=== PATIENT | female | born 1985 | race Hispanic/Latino ===

== ENCOUNTER 2023-06-05 11:44 | Emergency (ER) | payer MEDICAID, OTHER ==
[~2023-06-05] VITALS: Ht 160 cm; Wt 61.2 kg
[~2023-06-05 11:44] MED LIST: IBUP-2070 PO; PREN1TAB89 PO
[2023-06-05 11:47] VITALS: BP 108/69; PULSE 77; RESP 18
[2023-06-05 12:28] LABS: BASOPHILS # (AUTO) 0.04 K/uL (0.00-0.20); BASOPHILS % (AUTO) 0.4 % (0.0-5.0); HEMATOCRIT 37.2 % (36-48); IMMATURE GRANULOCYTE ABSOLUTE 0.03 K/uL (0-1); LYMPHOCYTES # (AUTO) 2.9 K/uL (1.0-4.8); LYMPHOCYTES % (AUTO) 28.3 % (21.0-51.0); MEAN CORPUSCULAR HGB CONC 34.9 g/dL (32.0-36.0); MEAN CORPUSCULAR VOLUME 91.6 fL (79-99); MONOCYTES # (AUTO) 0.6 K/uL (0.1-1.0); MONOCYTES % (AUTO) 6.1 % (3.0-13.0); NEUTROPHILS # (AUTO) 6.5 K/uL (1.8-7.7); NEUTROPHILS % (AUTO) 63.9 % (40.0-77.0); PLATELET COUNT (AUTO) 249 K/uL (130-400); RED BLOOD CELL COUNT(AUTO) 4.06 MIL/uL (4.00-5.50); WHITE BLOOD COUNT (AUTO) 10.2 K/uL (4.8-10.8)
[2023-06-05 12:38] LABS: APPEARANCE,URINE CLEAR (CLEAR); BILIRUBIN,URINE NEGATIVE (NEGATIVE); COLOR,URINE YELLOW (YELLOW); GLUCOSE, URINE (UA) NEGATIVE (NEGATIVE); KETONES,URINE NEGATIVE (NEGATIVE); LEUKOCYTE ESTERASE ,URINE 25 Leu/uL (NEGATIVE); NITRATE,URINE NEGATIVE (NEGATIVE); OCCULT BLOOD,URINE MODERATE (NEGATIVE); PROTEIN,URINE 30 mg/dL (NEGATIVE)
[2023-06-05 12:40] LABS: CREATININE 0.9 mg/dL (0.5-1.5); POTASSIUM 4.1 mmol/L (3.5-5.1)
[2023-06-05 12:45] LABS: BILIRUBIN,TOTAL 0.6 mg/dL (0.2-1.0); TOTAL PROTEIN, SERUM 7.7 g/dL (6.0-8.3)
[2023-06-05 12:46] LABS: AMPHET/METH SCREEN,URINE NEGATIVE (NEGATIVE); BARBITURATE SCREEN, URINE NEGATIVE (NEGATIVE); BENZODIAZEPINES SCREEN,URINE POSITIVE (NEGATIVE); CANNABINOID SCREEN,URINE POSITIVE (NEGATIVE); COCAINE SCREEN,URINE NEGATIVE (NEGATIVE); OPIATE SCREEN,URINE NEGATIVE (NEGATIVE); PHENCYCLIDINE SCREEN,URINE NEGATIVE (NEGATIVE)
[2023-06-05 12:58] LABS: ADD UA MICROSCOPIC YES
[2023-06-05 13:13] LABS: BACTERIA,URINE RARE /HPF (None Seen); MUCUS,URINE MOD LPF (None Seen); RBC,URINE 26-50 /HPF (0-1); SQUAMOUS EPITHELIAL CELL,UR MOD /HPF (0-2)
[2023-06-05] MEDS ORDERED: NITROFURANTOIN MONOHYD/M-CRYST 100 MG CAPSULE PO ONE (14:00)
[2023-06-05] MEDS ORDERED: METOCLOPRAMIDE 10 MG TABLET PO ONE (14:00)
[2023-06-05] MEDS: 0.9%NACL 1000ML 1,000 ML IV ONE (14:51)
[2023-06-05] MEDS: ONDANSETRON ODT 4MG TAB SL ONE (14:51)
[2023-06-05] MEDS: CEFTRIAXONE 1G VIAL IVPB ONE (14:51)
[2023-06-05 15:18] LABS: SARS-CoV-2, RNA, NAAT NEGATIVE SARS CoV-2 (NEGATIVE)
[2023-06-05] MEDS: ONDANSETRON 4MG INJ IVP ONE (15:39)
[2023-06-05] MEDS: MORPHINE 2 MG SYG IVP ONE (15:39)
[2023-06-05 15:52] LABS: INFLUENZA TYPE A Negative For Type A (NEGATIVE); INFLUENZA TYPE B Negative For Type B (NEGATIVE)
[2023-06-05] MEDS ORDERED: NITR100C PO (16:59)
[2023-06-05] MEDS ORDERED: ONDA4TAB10 PO (16:59)
== END 2023-06-05 17:13 | disposition home or self-care (01) ==
LOC: EDH 11:44
DX: N39.0 Urinary tract infection, site not specified (principal); F12.90 Cannabis use, unspecified, uncomplicated; I10 Essential (primary) hypertension; F41.9 Anxiety disorder, unspecified; Z20.822 Contact with and (suspected) exposure to COVID-19; Z79.899 Other long term (current) drug therapy; Z98.890 Other specified postprocedural states
CPT/HCPCS: 99285; 96374; 76705; 96375; 87635; 80053; 80305; 87088; 85025; 83690; 87077; 87186; 87804 ×2; 81025; 36415; 81001; J2270; J7030; J0696; J2405

== ENCOUNTER 2023-06-27 21:54 | Emergency (ER) | payer MEDICAID, OTHER ==
[~2023-06-27] VITALS: Ht 160 cm; Wt 62.6 kg
[~2023-06-27 21:54] MED LIST changes: +NITR100C PO; +ONDA4TAB10 PO
[2023-06-27 23:29] LABS: BASOPHILS # (AUTO) 0.03 K/uL (0.00-0.20); BASOPHILS % (AUTO) 0.3 % (0.0-5.0); EOSINOPHILS # (AUTO) 0.08 K/uL (0.00-0.70); EOSINOPHILS % (AUTO) 0.9 % (0.0-8.0); IMMATURE GRANULOCYTE ABSOLUTE 0.04 K/uL (0-1); LYMPHOCYTES # (AUTO) 2.5 K/uL (1.0-4.8); LYMPHOCYTES % (AUTO) 28.8 % (21.0-51.0); MEAN CORPUSCULAR HEMOGLOBIN 31.6 pg (27.0-33.0); MEAN CORPUSCULAR HGB CONC 35.1 g/dL (32.0-36.0); MONOCYTES # (AUTO) 0.8 K/uL (0.1-1.0); MONOCYTES % (AUTO) 8.7 % (3.0-13.0); NEUTROPHILS # (AUTO) 5.3 K/uL (1.8-7.7); NEUTROPHILS % (AUTO) 60.8 % (40.0-77.0); PLATELET COUNT (AUTO) 183 K/uL (130-400); RED BLOOD CELL COUNT(AUTO) 3.89 MIL/uL (4.00-5.50); RED CELL DISTRIBUTION WIDTH 12.2 % (11.0-15.5); WHITE BLOOD COUNT (AUTO) 8.7 K/uL (4.8-10.8)
[2023-06-27 23:39] LABS: CREATININE 0.8 mg/dL (0.5-1.0); POTASSIUM 3.7 mmol/L (3.5-5.1)
[2023-06-27 23:44] LABS: ALBUMIN 3.6 g/dL (3.5-5.0); BILIRUBIN,TOTAL 0.3 mg/dL (0.2-1.0)
[2023-06-27 23:52] LABS: RAPID GROUP A STREP negative (NEGATIVE)
[2023-06-27 23:59] LABS: SARS-CoV-2, RNA, NAAT NEGATIVE SARS CoV-2 (NEGATIVE)
[2023-06-28 00:02] LABS: INFLUENZA TYPE A Negative For Type A (NEGATIVE); INFLUENZA TYPE B Negative For Type B (NEGATIVE)
[2023-06-28] MEDS: ONDANSETRON 4MG INJ IVP ONE (00:25)
[2023-06-28] MEDS: LACTATED RINGERS 1000ML 1,000 ML IV ONE (00:25)
[2023-06-28] MEDS: KETOROLAC 30MG VIAL (30MG/ML) IVP ONE (00:31)
[2023-06-28] MEDS: KETOROLAC 30MG VIAL (30MG/ML) ONE (00:31)
[2023-06-28 00:33] LABS: BILIRUBIN,URINE NEGATIVE (NEGATIVE); COLOR,URINE LIGHT-YELLOW (YELLOW); GLUCOSE, URINE (UA) NEGATIVE (NEGATIVE); KETONES,URINE NEGATIVE (NEGATIVE); LEUKOCYTE ESTERASE ,URINE 25 Leu/uL (NEGATIVE); NITRATE,URINE NEGATIVE (NEGATIVE); OCCULT BLOOD,URINE MODERATE (NEGATIVE); PROTEIN,URINE NEGATIVE (NEGATIVE); UROBILINOGEN,URINE 0.2 mg/dL (0.2-1.0)
[2023-06-28 00:34] LABS: ADD UA MICROSCOPIC YES; APPEARANCE,URINE HAZY (CLEAR)
[2023-06-28 00:37] LABS: BACTERIA,URINE RARE /HPF (None Seen); SQUAMOUS EPITHELIAL CELL,UR MOD /HPF (0-2)
[2023-06-28] MEDS: PEG 3350/NA SULF,BICARB,CL/KCL 4000 ML SOLN PO ONE (01:45)
[2023-06-28] MEDS ORDERED: ONDA4TAB10 PO (01:49)
[2023-06-28] MEDS ORDERED: DOCU-116 PO (01:49)
[2023-06-28] MEDS ORDERED: NAPR-1180 PO (01:49)
[2023-06-28 02:39] VITALS: BP 105/68; PULSE 68; RESP 18; O2SAT 100
== END 2023-06-28 02:41 | disposition home or self-care (01) ==
LOC: EDH 21:54
DX: N20.0 Calculus of kidney (principal); K59.00 Constipation, unspecified; D64.9 Anemia, unspecified; Z79.899 Other long term (current) drug therapy; Z20.822 Contact with and (suspected) exposure to COVID-19; Z98.890 Other specified postprocedural states
CPT/HCPCS: 99285; 74176; 87635; 80053; 84703; 83690; 85025; 87880; 87804 ×2; 81001; 36415; 96374; 96361; 96375; J7120; J2405; J1885

== ENCOUNTER 2024-03-05 12:48 | Emergency (ER) | payer SELFPAY ==
[~2024-03-05] VITALS: Ht 160 cm; Wt 59.0 kg
[~2024-03-05 12:48] MED LIST changes: +DOCU-116 PO; +NAPR-1180 PO; +ONDA-243 PO; -ONDA4TAB10 PO
[2024-03-05] MEDS: 0.9%NACL 1000ML 1,770 ML IV ONE (13:00)
[2024-03-05 13:25] LABS: BASOPHILS # (AUTO) 0.01 K/uL (0.00-0.20); BASOPHILS % (AUTO) 0.2 % (0.0-5.0); HEMATOCRIT 35.9 % (36-48); IMMATURE GRANULOCYTE ABSOLUTE 0.01 K/uL (0-1); LYMPHOCYTES # (AUTO) 0.9 K/uL (1.0-4.8); LYMPHOCYTES % (AUTO) 16.9 % (21.0-51.0); MEAN CORPUSCULAR HEMOGLOBIN 31.9 pg (27.0-33.0); MEAN CORPUSCULAR VOLUME 93.7 fL (79-99); MONOCYTES # (AUTO) 0.5 K/uL (0.1-1.0); MONOCYTES % (AUTO) 9.3 % (3.0-13.0); NEUTROPHILS % (AUTO) 73.4 % (40.0-77.0); PLATELET COUNT (AUTO) 153 K/uL (130-400); RED BLOOD CELL COUNT(AUTO) 3.83 MIL/uL (4.00-5.50); WHITE BLOOD COUNT (AUTO) 5.4 K/uL (4.8-10.8)
[2024-03-05 13:33] LABS: CREATININE 0.8 mg/dL (0.5-1.0); POTASSIUM 3.2 mmol/L (3.5-5.1)
[2024-03-05 13:38] LABS: ALBUMIN 3.7 g/dL (3.5-5.0); BILIRUBIN,TOTAL 0.3 mg/dL (0.2-1.0); TOTAL PROTEIN, SERUM 7.5 g/dL (6.0-8.3)
[2024-03-05] MEDS: PANTOPrazole 40 MG/VIAL IVP ONE (14:49)
[2024-03-05] MEDS: MAG/ALUM/SIMETH 30 ML UDCUP PO ONE (14:49)
[2024-03-05] MEDS: LIDOCAINE HCL 2% VISCOUS 15 ML UDCUP PO ONE (14:49)
[2024-03-05] MEDS: LACTATED RINGERS 1000ML 1,000 ML IV ONE (14:49)
[2024-03-05] MEDS: ondanSETRON 4MG INJ IVP ONE (14:49)
[2024-03-05] MEDS: acetaMINOPHEN 325 MG TAB PO ONE (14:50)
--- NOTE | 2024-03-05 15:04 | ERN ---
General Chief Complaint: Flank Pain Stated Complaint: RIGHT FLANK PAIN Time Seen by MD: 12:51 Source: patient History of Present Illness Initial Comments Patient is a 39-year-old female coming in to be evaluated for multiple complaints. Patient states he has right flank pain as well as body aches sore throat earache and congestion. Allergies: Coded Allergies: No Known Allergies (Unverified Allergy, Unknown, 01/28/15) Home Meds Active Scripts Docusate Sodium (Colace) 100 Mg Capsule, 100 MG PO TID for constipation, #30 CAP 0 Refills Prov:NOMAN HOLLINS [facility] 06/28/23 Ondansetron (Ondansetron Odt) 4 Mg Tab.rapdis, 4 MG PO Q12H, #7 TAB Prov:NOMAN HOLLINS [facility] 06/28/23 Naproxen (Naprosyn) 500 Mg Tablet, 500 MG PO BIDPC for 10 Days, #20 TAB 0 Refills Prov:NOMAN HOLLINS [facility] 06/28/23 Ondansetron (Ondansetron Odt) 4 Mg Tab.rapdis, 4 MG PO Q6HPRN PRN for nausea, #15 TAB 0 Refills Prov:MARNIE HAWKINS [facility] 06/05/23 Nitrofurantoin Macrocrystal (Nitrofurantoin) 100 Mg Capsule, 100 MG PO BID for 7 Days, #14 CAP 0 Refills Prov:MARNIE HAWKINS [employer] 06/05/23 Reported Medications Vit W-Ca,Fe,FA(<1 mg) ( Vitamins) 1 Each Tablet, 1 EACH PO AM, TAB 12/19/15 Ibuprofen (Ibuprofen) 600 Mg Tablet, 600 MG PO Q6H PRN for PAIN, #30 TAB 1 Refill 01/31/15 Past Medical History Past Medical History: No Pertinent History, Anemia Past Surgical History: Other, BTL Surgical History Other: TUBAL LIGATION Social History Social History: Drugs Female( History) LMP: Jan 25, 2024 ROS Dictation CONSTITUTIONAL: No chills, no fever, no weakness, no diaphoresis, no malaise. HEAD/FACE: No signs of trauma. EENT: No eye pain, no blurred vision, no tearing, no double vision, no ear pain, no ear discharge, no nose pain, no nasal congestion, no throat pain, no throat swelling, no mouth pain. RESPIRATORY: No cough, no orthopnea, no SOB, no stridor, no wheezing. CARDIOVASCULAR: No chest pain, no edema, no palpitations, no syncope. GASTROINTESTINAL/ABDOMINAL: No abdominal pain, no constipation, no diarrhea, no nausea, no vomiting. GENITOURINARY: No abnormal discharge, no dysuria, no frequent urination, no hematuria. No complaints of pain in the genitals. MUSCULOSKELETAL: No back pain, no gout, no joint pain, no joint swelling, no muscle pain, no muscle stiffness, no neck pain. INTEGUMENTARY: No change in color, no change in hair/nails, no dryness, no lesion, no lumps, no rash. NEUROLOGICAL/PSYCH: No anxiety, not depressed, no emotional problem, no headache, no numbness, no pre-existing deficit, no history of seizures, no tremors, no weakness. HEMATOLOGIC/LYMPHATIC: Not anemic, no history of blood clots, no apparent bleeding, no bruising, glands not swollen. All Systems Negative, Except as Noted. Physical Exam Physical Exam Dictation VITAL SIGNS: Reviewed. GENERAL APPEARANCE: Alert, oriented x3, no acute distress, obese. HEAD AND FACE: Non-traumatic. EYES: PERRL, pink conjunctivas, eyelid no trauma, anterior chamber clear. EARS: Pinnas intact and no signs of trauma or erythema. Ear canals clear and no discharge. TMs no erythema. NOSE: No discharge, no bleeding. OROPHARYNX: Mouth normal, teeth no caries, tongue pink. Pharynx clear, no erythema. Tonsils no exudates, no abscesses noted. Mucous membrane moist. NECK: Supple, non-tender, no thyromegaly, no masses, no JVD, no bruits. BREAST: Deferred. CHEST: No tenderness, no crepitus, no paradoxical movement, no retractions. LUNGS: Clear, well-ventilated, symmetric, no rales, no wheezing, no rhonchi, no stridor, good breath sounds bilaterally. HEART: Regular rate, regular rhythm, no murmur, no gallops. VASCULAR: No peripheral edema. ABDOMEN: Soft, positive bowel sounds, nondistended, no guarding, nontender, no rebound, no masses no hepatomegaly, no splenomegaly, no La's sign, no hernias. RECTAL: Deferred. GENITAL: Deferred. NEUROLOGICAL: Normal speech, gross motor function intact, gross sensory function intact. MUSCULOSKELETAL: Neck nontender, full range of motion, back nontender, full range of motion. EXTREMITIES: Nontender, full range of motion. SKIN: Color pink, dry, no turgor, no rash, no lacerations, no abrasions, no contusions. LYMPHATICS: Deferred. IVF Sepsis Management IVF Sepsis Management BMI >30kg/m2?: Yes Results Laboratory and Microbiology Lab and Micro Result Laboratory Tests Test 03/05/24 13:15 03/05/24 14:41 White Blood Count 5.4 K/uL (4.8-10.8) Red Blood Count 3.83 MIL/uL (4.00-5.50) L Hemoglobin 12.2 g/dL (12.0-16.0) Hematocrit 35.9 % (36-48) L Mean Corpuscular Volume 93.7 fL (79-99) Mean Corpuscular Hemoglobin 31.9 pg (27.0-33.0) Mean Corpuscular Hemoglobin Concent 34.0 g/dL (32.0-36.0) Red Cell Distribution Width 12.0 % (11.0-15.5) Platelet Count 153 K/uL (130-400) Mean Platelet Volume 9.3 fL (7.5-10.5) Immature Granulocyte % (Auto) 0.2 % (0-1) Neutrophils (%) (Auto) 73.4 % (40.0-77.0) Lymphocytes (%) (Auto) 16.9 % (21.0-51.0) L Monocytes (%) (Auto) 9.3 % (3.0-13.0) Eosinophils (%) (Auto) 0.0 % (0.0-8.0) Basophils (%) (Auto) 0.2 % (0.0-5.0) Neutrophils # (Auto) 4.0 K/uL (1.8-7.7) Lymphocytes # (Auto) 0.9 K/uL (1.0-4.8) L Monocytes # (Auto) 0.5 K/uL (0.1-1.0) Eosinophils # (Auto) 0.00 K/uL (0.00-0.70) Basophils # (Auto) 0.01 K/uL (0.00-0.20) Absolute Immature Granulocyte (auto 0.01 K/uL (0-1) Nucleated Red Blood Cells 0.0 % (0.0-0.19) Sodium Level 134 mmol/L (136-145) L Potassium Level 3.2 mmol/L (3.5-5.1) L Chloride Level 100 mmol/L (101-111) L Carbon Dioxide Level 25 mmol/L (21-32) Blood Urea Nitrogen 11 mg/dL (7-18) Creatinine 0.8 mg/dL (0.5-1.0) Glomerular Filtration Rate Calc 97 mL/min (>90) Random Glucose 99 mg/dL (70-105) Lactic Acid Level 1.3 mmol/L (0.8-2.5) Total Calcium 8.5 mg/dL (8.5-10.1) Total Bilirubin 0.3 mg/dL (0.2-1.0) Aspartate Amino Transf (AST/SGOT) 22 U/L (10-37) Alanine Aminotransferase (ALT/SGPT) 20 U/L (12-78) Alkaline Phosphatase 68 U/L (50-136) Total Creatine Kinase 126 U/L (21-232) Troponin I High Sensitivity 5 ng/L (4-50) Total Protein 7.5 g/dL (6.0-8.3) Albumin 3.7 g/dL (3.5-5.0) Lipase 33 U/L (16-77) Influenza Type A Antigen Positive For Type A Influenza Type B Antigen Negative For Type B SARS-CoV-2, RNA, NAAT NEGATIVE SARS CoV-2 Labs Reviewed?: Yes MDM MDM: Differential diagnosis: Influenza a, muscle aches, Patient is a 39-year-old female coming in to be evaluated for multiple complaints. Patient states he has been having muscle aches back pain arm pain. Laboratory workup positive for influenza A. Patient will be discharged with Tamiflu and symptomatic medication. ED Course Orders Procedure Category Date Status Time Cbc With Differential LAB 03/05/24 Complete 12:52 Comprehensive LAB 03/05/24 Complete Metabolic Panel 12:52 Troponin I High LAB 03/05/24 Complete Sensitivity 12:52 ,Urine Test LAB 03/05/24 Logged 12:52 Urinalysis Profile LAB 03/05/24 Logged 12:52 Lactated Ringers PHA 03/05/24 Complete 1000ml (Lactated 13:00 Acetaminophen 325 Tab PHA 03/05/24 Complete (Tylenol 325mg Tab 13:00 Ondansetron 4mg Inj PHA 03/05/24 Complete (Zofran 4mg Inj) 13:00 Lidocaine Hcl 2% PHA 03/05/24 Complete Viscous (Lidocaine Hcl 13:00 Mag/Alum/Simeth 30ml PHA 03/05/24 Complete (Maalox Plus 30ml) 13:00 Pantoprazole 40mg Inj PHA 03/05/24 Complete (Protonix 40mg Inj 13:00 Creatine Kinase, Total LAB 03/05/24 Complete 12:52 Lipase LAB 03/05/24 Complete 12:52 Drug Screen Urine LAB 03/05/24 Logged 12:52 Covid Rna Naat LAB 03/05/24 Complete 12:58 Influenza Type A & B, LAB 03/05/24 Complete Rapid 12:58 Blood Cult ANGEL 03/05/24 In Process 12:58 Culture Urine ANGEL 03/05/24 Logged 12:58 0.9%Nacl 1000ml (Ns PHA 03/05/24 In Process 1000ml) 13:00 Lactic Acid LAB 03/05/24 Complete 12:58 Current Medications Medications (Trade) Dose Ordered Sig/Arnaldo Route PRN Reason Start Time Stop Time Status Last Admin Dose Admin Acetaminophen (TYLenol 325MG TAB) 650 mg ONCE ONCE PO 03/05/24 13:00 03/05/24 13:01 DC 03/05/24 14:50 Al Hydroxide/Mg Hydroxide (MAALox PLUS 30ML) 30 ml ONCE ONCE PO 03/05/24 13:00 03/05/24 13:01 DC 03/05/24 14:49 Lactated Ringer's 1,000 ml @ 0 mls/hr ONCE ONCE IV 03/05/24 13:00 03/05/24 13:01 DC 03/05/24 14:49 Lidocaine HCl (Lidocaine HCl 2% Viscous) 10 ml ONCE ONCE PO 03/05/24 13:00 03/05/24 13:01 DC 03/05/24 14:49 Ondansetron HCl (zoFRAN 4MG INJ) 4 mg ONCE ONCE IVP 03/05/24 13:00 03/05/24 13:01 DC 03/05/24 14:49 Pantoprazole Sodium (PROTonix 40MG INJ) 40 mg ONCE ONCE IVP 03/05/24 13:00 03/05/24 13:01 DC 03/05/24 14:49 Sodium Chloride 1,770 ml @ 590 mls/hr ONCE ONCE IV 03/05/24 13:00 03/05/24 15:59 Vital Signs Date Time Temp Pulse Resp B/P (MAP) Pulse Ox O2 Delivery O2 Flow Rate FiO2 03/05/24 14:50 100.4 03/05/24 12:50 102.6 105 20 106/71 98 Room Air 0 DX & DISP Disposition: Discharge Departure Impression: Primary Impression: Influenza Condition: Stable Scripts Acetaminophen (Tylenol) 500 Mg Tab 1 TAB PO Q6HPRN PRN for pain or fever for 5 Days, #30 TAB 0 Refills Prov: YAMILETH ARTIS MD 03/05/24 Oseltamivir Phosphate (Tamiflu) 75 Mg Cap 1 CAP PO BID for 5 Days, #10 CAP 0 Refills Prov: YAMILETH ARTIS MD 03/05/24 Additional Instructions: FOLLOW-UP WITH PRIMARY CARE PROVIDER IN 1 TO 2 DAYS. TAKE MEDICATIONS DIRECTED HERE IN THE EMERGENCY ROOM. OKAY TO CONTINUE HOME MEDICATIONS UNLESS OTHERWISE DISCUSSED DURING YOUR VISIT IN THE EMERGENCY ROOM TODAY. RETURN TO YOUR NEAREST EMERGENCY ROOM IF SYMPTOMS WORSEN OR IF THERE IS NO IMPROVEMENT. CALL 911 IF YOU NEED IMMEDIATE ASSISTANCE. TAKE TYLENOL [id number] NEEDED AND IF NO CONTRAINDICATIONS ARE PRESENT. INCREASE ORAL HYDRATION. A WOUND CULTURE OR URINE CULTURE WAS ORDERED HERE IN THE EMERGENCY ROOM DEPARTMENT PLEASE FOLLOW-UP WITH PRIMARY CARE PROVIDER AND ADVISE THEM TO GET REPEAT PORTS FROM OUR FACILITY. IF YOU HAD ANY SUSSY WRAP/SPLINTS THAT WERE APPLIED HERE, PLEASE DO NOT REMOVE THEM UNTIL YOU SEE YOUR PRIMARY CARE OR SPECIALTY. Referrals: Referrals: NONE (PCP) CURTIS LOGAN MD Time of Disposition: 15:33 YAMILETH ARTIS MD Mar 05, 2024 15:04
[2024-03-05 15:14] LABS: SARS-CoV-2, RNA, NAAT NEGATIVE SARS CoV-2 (NEGATIVE)
[2024-03-05 15:17] LABS: INFLUENZA TYPE B Negative For Type B (NEGATIVE)
[2024-03-05 15:22] LABS: INFLUENZA TYPE A Positive For Type A (NEGATIVE)
[2024-03-05] MEDS ORDERED: ACET-66 PO (15:34)
[2024-03-05] MEDS ORDERED: OSEL75 PO (15:34)
[2024-03-05 15:50] VITALS: TEMP 99.2
[2024-03-05 16:09] LABS: APPEARANCE,URINE CLEAR (CLEAR); BILIRUBIN,URINE NEGATIVE (NEGATIVE); COLOR,URINE YELLOW (YELLOW); GLUCOSE, URINE (UA) NEGATIVE (NEGATIVE); KETONES,URINE 60 mg/dL (NEGATIVE); LEUKOCYTE ESTERASE ,URINE NEGATIVE Leu/uL (NEGATIVE); NITRATE,URINE NEGATIVE (NEGATIVE); OCCULT BLOOD,URINE LARGE (NEGATIVE); PROTEIN,URINE 30 mg/dL (NEGATIVE); UROBILINOGEN,URINE 0.2 mg/dL (0.2-1.0)
[2024-03-05 16:14] LABS: HCG,QUALITATIVE URINE NEGATIVE (NEGATIVE)
[2024-03-05 16:15] LABS: ADD UA MICROSCOPIC YES
[2024-03-05 16:16] LABS: AMPHET/METH SCREEN,URINE NEGATIVE (NEGATIVE); BARBITURATE SCREEN, URINE NEGATIVE (NEGATIVE); BENZODIAZEPINES SCREEN,URINE NEGATIVE (NEGATIVE); CANNABINOID SCREEN,URINE POSITIVE (NEGATIVE); COCAINE SCREEN,URINE NEGATIVE (NEGATIVE); OPIATE SCREEN,URINE NEGATIVE (NEGATIVE); PHENCYCLIDINE SCREEN,URINE NEGATIVE (NEGATIVE)
[2024-03-05 16:26] LABS: BACTERIA,URINE RARE /HPF (None Seen); MUCUS,URINE RARE LPF (None Seen); RBC,URINE >100 /HPF (0-1); SQUAMOUS EPITHELIAL CELL,UR RARE /HPF (0-2); YEAST,URINE BUDDING FEW /HPF (None Seen)
[2024-03-05 16:52] VITALS: BP 104/61; PULSE 84; RESP 20; TEMP 99.2; O2SAT 98
== END 2024-03-05 16:58 | disposition home or self-care (01) ==
LOC: EDH 12:48
DX: J11.1 Influenza due to unidentified influenza virus with other respiratory manifestations (principal); Z98.51 Tubal ligation status; Z20.822 Contact with and (suspected) exposure to COVID-19
CPT/HCPCS: 99284; 96374; 96361; 87635; 96375; 82550; 84484; 80053; 80305; 83690; 85025; 87040 ×2; 87086; 87804 ×2; 83605; 81001; 81025; 36415; J7120; J7030; J2405; J2470